=== PATIENT | male | born 1945 | race Caucasian/White ===

== ENCOUNTER 2018-05-12 12:48 | Emergency (ER) | payer MEDICARE ==
[~2018-05-12] VITALS: Ht 180.3 cm; Wt 110.0 kg
[2018-05-12] MEDS ORDERED: PULMICORT0.5MG/2ML IN (13:09)
[2018-05-12] MEDS ORDERED: PERFOROMIS20 MCG/2 M IN (13:10)
[2018-05-12] MEDS ORDERED: METHYLPRED PO (13:10)
[2018-05-12 13:53] LABS: HEMATOCRIT 51.4 % (39.0-50.0); HEMOGLOBIN 17.5 g/dl (14.0-18.0); IMMATURE GRANULOCYTES 1.3 % (0.0-5.0); MEAN CELL VOLUME 97.9 fL CALC (80.0-100.0); MEAN CORPUSCULAR HGB 33.3 pG CALC (26.0-32.0); NEUT# 10.8 thou/uL (1.82-7.42); RED BLOOD COUNT 5.25 mill/uL (4.70-6.10); RED CELL DISTRI WIDTH 15.3 % (11.5-15.5)
[2018-05-12] MEDS ORDERED: PANTOPRAZOLE SO40 MG PO (14:07)
[2018-05-12 14:08] LABS: ANION GAP 14 (6-22 (CALC)); BUN 27 mg/dL (8-23); BUN/CREATININE RATIO 24 (12-20 (CALC)); CARBON DIOXIDE 30 mmol/l (22-30); CHLORIDE 101 mmol/l (95-108); CREATININE 1.1 mg/dL (0.7-1.3); GFR > 60 ML/MIN (>=60 (CALC)); GFR FOR AFR.AMER. > 60 ML/MIN (>=60 (CALC)); POTASSIUM 3.6 mmol/l (3.5-5.1); SODIUM 141 mmol/l (137-146)
[2018-05-12] MEDS ORDERED: DESOXIMETASONE 0.25% EX (14:08)
[2018-05-12] MEDS ORDERED: ESBRIET267 MG PO (14:09)
[2018-05-12] MEDS ORDERED: NABUMETONE750 MG PO (14:09)
[2018-05-12] MEDS ORDERED: LANTUS100 UNIT/M SC (14:10)
[2018-05-12] MEDS ORDERED: NOVOLOG100 UNIT/M SC (14:11)
[2018-05-12] MEDS ORDERED: DEMADEX20 MG PO (14:11)
[2018-05-12] MEDS ORDERED: ASPIRIN81 MG PO (14:12)
[2018-05-12] MEDS ORDERED: SINGULAIR10 MG PO (14:12)
[2018-05-12] MEDS ORDERED: LIPITOR40 M1 PO (14:13)
[2018-05-12] MEDS ORDERED: TOPROL XL25 M1 PO (14:14)
[2018-05-12] MEDS ORDERED: MULTIVITAMIN ME1 TA2 PO (14:15)
[2018-05-12] MEDS ORDERED: POT CHLORIDE10 ME1 PO (14:15)
[2018-05-12 16:34] VITALS: BP 129/61
== END 2018-05-12 16:35 | disposition short-term general hospital (02) ==
LOC: ED 12:48 → ED-I 15:07 → ED 16:35
PROVIDERS: Family Medicine
DX: I26.99 Other pulmonary embolism without acute cor pulmonale (principal); R05 Cough; J44.9 Chronic obstructive pulmonary disease, unspecified; R06.02 Shortness of breath; I10 Essential (primary) hypertension; R06.2 Wheezing; Z99.81 Dependence on supplemental oxygen
CPT/HCPCS: J1644; Q9967